=== PATIENT | male | born 1970 | race Caucasian/White ===

== ENCOUNTER 2023-05-02 10:28 | Emergency (ER) | payer MEDICAID ==
[~2023-05-02] VITALS: Ht 177.8 cm; Wt 113.4 kg
[2023-05-02 10:44] VITALS: BP_SYST 188
--- NOTE | 2023-05-02 10:49 | NUR ---
Patient triaged and placed in waiting room. VSS and patient appears in no acute distress at this time. Accompanied by self, awaiting available bed, and MD notified of need for MSE. pt from [facility] with paperwork for no narcotic, given to .
--- NOTE | 2023-05-02 12:30 | NUR ---
ER at bedside examining patient.
[2023-05-02 12:40] LABS: BASOPHILS % (AUTO) 0.4 % (0.0-2.0); EOSINOPHILS # (AUTO) 0.1 K/uL (0.0-0.4); EOSINOPHILS % (AUTO) 0.8 % (0.0-4.0); HEMATOCRIT 52.2 % (36-54); HEMOGLOBIN 17.7 g/dL (14.0-18.0); LYMPHOCYTES # (AUTO) 1.2 K/uL (1.0-5.5); LYMPHOCYTES % (AUTO) 15.9 % (20.5-51.5); MEAN CORPUSCULAR HEMOGLOBIN 28 pg (27-31); MEAN CORPUSCULAR HGB CONC 34 % (32-36); MEAN CORPUSCULAR VOLUME 83 fL (79.0-98.0); MONOCYTES # (AUTO) 0.4 K/uL (0.0-1.0); NEUTROPHILS % (AUTO) 77.9 % (40.0-70.0); PLATELET COUNT (AUTO) 155 K/uL (130-430); RED CELL DISTRIBUTION WIDTH 13.8 % (9.0-15.0); WHITE BLOOD COUNT (AUTO) 7.7 K/uL (4.8-10.8)
--- NOTE | 2023-05-02 13:00 | NUR ---
PT BIB [facility] FROM [facility] C/O HTN. PT DENIES MEDRANO AND BLURRY VISION. PT ASYMPTOMATIC AT THIS TIME. PT HX OF DIABETES AND HTN. PT RESTING COMFORTABLY IN BED VSS
[2023-05-02 13:12] LABS: ALBUMIN 3.9 g/dL (3.4-4.8); ANION GAP 7 (5-15); CALCIUM 9.5 mg/dL (8.4-11.0); CHLORIDE 95 mmol/L (98-107); CREATININE 1.48 mg/dL (0.55-1.30); GFR AFRICAN AMERICAN 64 mL/min (>90); TOTAL BILIRUBIN 0.6 mg/dL (0.0-1.0); UREA NITROGEN, BLOOD 21 mg/dL (8-21)
[2023-05-02 13:14] LABS: GLUCOSE 482 mg/dL (70-99)
[2023-05-02 13:23] LABS: ALANINE AMINOTRANSFERASE 38 U/L (12-78); ASPARTATE AMINOTRANSFERASE 17 U/L (10-37)
[2023-05-02] MEDS ORDERED: INSULIN REGULAR, HUMAN 10 UNITS/0.1 ML, 3 ML VIAL IVP ONE (13:45)
[2023-05-02] MEDS ORDERED: cloNIDine HCL 0.1 MG TABLET PO ONE (13:45)
[2023-05-02] MEDS ORDERED: NACL 0.9% 1,000 ML IV ONE (13:45)
[2023-05-02] MEDS ORDERED: CLON0.2T PO (13:47)
[2023-05-02] MEDS ORDERED: INSULIN REGULAR, HUMAN 10 UNITS/0.1 ML, 3 ML VIAL ONE (14:19)
[2023-05-02] MEDS ORDERED: METF-518 PO (15:09)
[2023-05-02 15:28] VITALS: BP_SYST 125
--- NOTE | 2023-05-02 15:30 | NUR ---
Patient given written and verbal discharge instructions and verbalizes understanding. ER MD discussed with patient the results and treatment provided. Patient in stable condition. ID arm band removed. IV catheter removed intact and dressing applied, no active bleeding. Rx of CLONIDINE AND METFORMIN given. Patient educated on HYPERGLYCEMIA and to follow up with PMD. Pain Scale . Opportunity for questions provided and answered. Medication side effect fact sheet provided.
[2023-05-04] MEDS ORDERED: LOSA100T4 PO (13:43)
== END 2023-05-02 15:30 | disposition home or self-care (01) ==
LOC: SED 10:28
DX: I16.0 Hypertensive urgency (principal); E11.65 Type 2 diabetes mellitus with hyperglycemia; R73.9 Hyperglycemia, unspecified; I10 Essential (primary) hypertension; Z79.899 Other long term (current) drug therapy
CPT/HCPCS: 99284; 96374; 71045; 96361; 80053; 82962; 83880; 85025; 84484; 36415; J1815; J7030

== ENCOUNTER 2023-05-08 15:26 | Emergency (ER) | payer MEDICAID ==
[~2023-05-08] VITALS: Ht 177.8 cm; Wt 97.5 kg
[~2023-05-08 15:26] MED LIST: CLON0.2T PO; LOSA100T4 PO; METF-518 PO
[2023-05-08 15:36] VITALS: BP_SYST 171
--- NOTE | 2023-05-08 15:45 | NUR ---
ER at bedside examining patient.
--- NOTE | 2023-05-08 15:57 | NUR ---
PT ROOMED TO BED 08 ASSIGNMENT GIVEN TO RJ COSTA/MICHI COSTA
[2023-05-08] MEDS ORDERED: HYDR12.55 PO (15:59)
--- NOTE | 2023-05-08 16:10 | NUR ---
[facility]. Pt states his blood pressure usually reads about 160/140. Pt denies SOB. Pt denies chest pain. Pt denies dizziness, headache. Pt denies N/V/D. Pt afebrile. Pt has hx of HTN, DM. Pt AAOX4. PERRLA. Skin dry and intact. PT speaking full complete sentences.
[2023-05-08 16:18] VITALS: BP_SYST 169
--- NOTE | 2023-05-08 16:18 | NUR ---
Patient given written and verbal discharge instructions and verbalizes understanding. ER MD discussed with patient the results and treatment provided. Patient in stable condition. ID arm band removed. Rx of HYDROCHLOROTHIAZIDE given. Patient educated on pain management and to follow up with PMD. Opportunity for questions provided and answered. Medication side effect fact sheet provided.
== END 2023-05-08 16:18 | disposition home or self-care (01) ==
LOC: SED 15:26
DX: I10 Essential (primary) hypertension (principal); E11.9 Type 2 diabetes mellitus without complications; Z79.899 Other long term (current) drug therapy
CPT/HCPCS: 99283

== ENCOUNTER 2023-05-12 16:15 | Emergency (ER) | payer MEDICAID ==
[~2023-05-12] VITALS: Ht 177.8 cm; Wt 113.4 kg
[2023-05-12 16:15] VITALS: BP_SYST 148
[~2023-05-12 16:15] MED LIST changes: +HYDR12.55 PO
--- NOTE | 2023-05-12 16:19 | NUR ---
Patient triaged and placed in waiting room. VSS and patient appears in no acute distress at this time. Accompanied by SELF, awaiting available bed, and MD notified of need for MSE.
--- NOTE | 2023-05-12 17:09 | NUR ---
CALLED PT FOR GLUCOSE CHECK. NO RESPONSE FROM LOBBY.
--- NOTE | 2023-05-12 17:34 | NUR ---
2ND ATTEMPT AT CALLIN GPT IN WAITING ROOM. NO RESPONSE FROM PATIENT.
--- NOTE | 2023-05-12 17:35 | NUR ---
PT LEFT WITHOUT BEING SEEN BY
--- NOTE | 2023-05-12 18:01 | NUR ---
PT RETURNED TO WAITING ROOM AND WILL CHECK BLOOD SUGAR
--- NOTE | 2023-05-12 18:51 | NUR ---
ACCUCHECK VALUE HI; COSTUMING SUPERVISOR AND MD MADE AWARE
[2023-05-12] MEDS ORDERED: NACL 0.9% 1,000 ML IV ONE ×2 (19:00→22:15)
--- NOTE | 2023-05-12 19:12 | NUR ---
Placed in room 07 . Placed on radiation monitor, blood pressure machine and pulse oximeter. To gown for exam. Side rails up. Report given to JULISSA SINGH
--- NOTE | 2023-05-12 19:25 | NUR ---
PT BIB SELF FROM [facility], AMBULATED TO BED 7/ PT A&Ox4, ABLE TO MAKE NEEDS KNOWN. PT C/O HYPERGLYCEMIA AND NEEDS INSULIN. PT STATES HE TAKES METFORMIN 500MG BID AND "IT DOES NOT WORK." PT DENIES PAIN AT THIS TIME. PT DENIES N/V/D, FEVER/CHILLS, SOB AND CHEST PAIN. SAFETY PRECAUTIONS IN PLACE.
--- NOTE | 2023-05-12 19:25 | NUR ---
ER Dr. BERMUDEZ at bedside examining patient.
[2023-05-12 20:26] LABS: BASOPHILS % (AUTO) 0.3 % (0.0-2.0); EOSINOPHILS # (AUTO) 0.1 K/uL (0.0-0.4); EOSINOPHILS % (AUTO) 1.8 % (0.0-4.0); HEMATOCRIT 48.3 % (36-54); HEMOGLOBIN 16.3 g/dL (14.0-18.0); LYMPHOCYTES # (AUTO) 0.8 K/uL (1.0-5.5); LYMPHOCYTES % (AUTO) 12.2 % (20.5-51.5); MEAN CORPUSCULAR HEMOGLOBIN 28 pg (27-31); MEAN CORPUSCULAR HGB CONC 34 % (32-36); MEAN CORPUSCULAR VOLUME 83 fL (79.0-98.0); MONOCYTES # (AUTO) 0.5 K/uL (0.0-1.0); MONOCYTES % (AUTO) 6.7 % (1.7-9.3); NEUTROPHILS # (AUTO) 5.3 K/uL (1.8-7.7); PLATELET COUNT (AUTO) 165 K/uL (130-430); RED BLOOD CELL COUNT(AUTO) 5.79 MIL/uL (4.2-6.2); RED CELL DISTRIBUTION WIDTH 13.2 % (9.0-15.0); WHITE BLOOD COUNT (AUTO) 6.7 K/uL (4.8-10.8)
[2023-05-12 20:36] LABS: ACETONE, SERUM NEGATIVE (NEGATIVE)
[2023-05-12 20:40] LABS: ALANINE AMINOTRANSFERASE 17 U/L (12-78); ALBUMIN 3.5 g/dL (3.4-4.8); ANION GAP 6 (5-15); ASPARTATE AMINOTRANSFERASE 8 U/L (10-37); CALCIUM 9.2 mg/dL (8.4-11.0); CHLORIDE 90 mmol/L (98-107); CREATININE 1.65 mg/dL (0.55-1.30); GFR AFRICAN AMERICAN 56 mL/min (>90); LIPASE 141 U/L (73-393); TOTAL BILIRUBIN 0.4 mg/dL (0.0-1.0); UREA NITROGEN, BLOOD 22 mg/dL (8-21)
[2023-05-12 20:44] LABS: GLUCOSE 713 mg/dL (70-99)
[2023-05-12] MEDS ORDERED: INSULIN REGULAR, HUMAN 10 UNITS/0.1 ML, 3 ML VIAL IVP ONE (20:45)
[2023-05-12] MEDS ORDERED: METF-379 PO (22:28)
[2023-05-12 22:54] VITALS: BP_SYST 142
--- NOTE | 2023-05-12 22:54 | NUR ---
Patient given written and verbal discharge instructions and verbalizes understanding. ER DR BERMUDEZ discussed with patient the results and treatment provided. Patient in stable condition. ID arm band removed. IV catheter removed intact and dressing applied, no active bleeding. Rx of METFORMIN given. Patient educated on pain management and to follow up with PMD. Pain Scale 0/10. Opportunity for questions provided and answered. Medication side effect fact sheet provided.
== END 2023-05-12 22:54 | disposition home or self-care (01) ==
LOC: SED 16:15
DX: E11.65 Type 2 diabetes mellitus with hyperglycemia (principal); I10 Essential (primary) hypertension; Z79.899 Other long term (current) drug therapy
CPT/HCPCS: 99283; 96374; 96361; 80053; 82009; 82962; 83690; 85025; 36415; J1815; J7030

== ENCOUNTER 2023-05-13 15:43 | Emergency (ER) | payer MEDICAID ==
[~2023-05-13] VITALS: Ht 177.8 cm; Wt 113.4 kg
[~2023-05-13 15:43] MED LIST changes: +METF-379 PO
[2023-05-13 17:00] VITALS: BP_SYST 143
== END 2023-05-13 18:00 | disposition home or self-care (01) ==
LOC: SED 15:43
DX: E11.65 Type 2 diabetes mellitus with hyperglycemia (principal); I10 Essential (primary) hypertension; Z79.899 Other long term (current) drug therapy
CPT/HCPCS: 82962; 99281; 99282